=== PATIENT | male | born 1995 | race Two or more races ===

== ENCOUNTER 2016-10-03 19:46 | Emergency (ER) | payer OTHER ==
[~2016-10-03] VITALS: Ht 175.3 cm; Wt 79.4 kg
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
--- NOTE | 2016-10-03 19:57 | NUR ---
MEENA WALTERS AT BEDSIDE FOR EVAL.
[2016-10-03] MEDS ORDERED: HYDROCODONE/APAP 5/325MG 1 EACH TABLET ONE (19:59)
[2016-10-03] MEDS ORDERED: HYDROCODONE/APAP 5/325MG 1 EACH TABLET PO ONE (20:00)
--- NOTE | 2016-10-03 20:04 | NUR ---
RADIOLOGY AT BEDSIDE FOR LT KNEE XRAY.
--- NOTE | 2016-10-03 20:32 | NUR ---
KNEE IMMOBILIZER APPLIED. PT D/C IN STABLE CONDITION. CRUTCHES PROVIDED AND INSTRUCTED HOW TO CORRECTLY USE ONE.
[2016-10-03 20:34] VITALS: BP 131/77
== END 2016-10-03 20:35 | disposition home or self-care (01) ==
LOC: ER 19:48
DX: S80.02XA Contusion of left knee, initial encounter (principal); X58.XXXA Exposure to other specified factors, initial encounter; Y93.66 Activity, soccer; Y92.89 Other specified places as the place of occurrence of the external cause; Y99.9 Unspecified external cause status
CPT/HCPCS: 73564-TC; A4606; Z7610